=== PATIENT | male | born 1965 | race Caucasian/White ===

== ENCOUNTER 2022-01-28 08:17 | Outpatient (CLI) | payer OTHER, SELFPAY ==
[2022-01-28 14:02] LABS: Cholesterol* 159 mg/dL (90-199); HDL Cholesterol* 32 mg/dL (>=40); LDL Cholesterol Calculated 107 mg/dL (<100); Triglycerides* 102 mg/dL (40-149)
[2022-01-30 16:35] LABS: Glucose* 95 mg/dL (60-115)
== END 2022-01-28 08:18 | disposition home or self-care (01) ==
PROVIDERS: PCP Emergency Medicine; Visit Provider Emergency Medicine
DX: R73.01 Impaired fasting glucose (principal); E78.5 Hyperlipidemia, unspecified
CPT/HCPCS: 80061; 82947

== ENCOUNTER 2022-07-22 10:27 | Outpatient (CLI) | payer OTHER, SELFPAY ==
[2022-07-22 22:12] LABS: Chloride* 102 mmol/L (96-114); Sodium* 138 mmol/L (135-149)
[2022-07-22 22:13] LABS: Potassium* 4.3 mmol/L (3.6-5.1)
[2022-07-22 22:15] LABS: Blood Urea Nitrogen* 13 mg/dL (7-30); Carbon Dioxide* 33 mmol/L (20-32); Creatinine* 0.9 mg/dL (0.5-1.5); Estimated Glomerular Filt Rate 101 ml/min
[2022-07-22 22:16] LABS: Calcium* 9.6 mg/dL (8.4-10.6); Glucose* 93 mg/dL (60-115)
== END 2022-07-22 10:28 | disposition home or self-care (01) ==
PROVIDERS: PCP Emergency Medicine; Visit Provider Family Medicine
DX: Z01.810 Encounter for preprocedural cardiovascular examination (principal)
CPT/HCPCS: 80048

== ENCOUNTER 2022-07-27 10:00 | Outpatient (CLI) | payer OTHER, SELFPAY ==
--- NOTE | 2022-07-27 11:10 | W.ANESCHARGE ---
Anesthesia Charges Start Date/Time Anesthesia Start Date: 07/27/22 Anesthesia Start Time: 10:35 Stop Date/Time Anesthesia Stop Date: 07/27/22 Anesthesia Stop Time: 11:05 Summary Emergency: No
--- NOTE | 2022-07-27 11:11 | W.ANESCHARGE ---
Anesthesia Charges Start Date/Time Anesthesia Start Date: 07/27/22 Anesthesia Start Time: 10:35 Stop Date/Time Anesthesia Stop Date: 07/27/22 Anesthesia Stop Time: 11:05 Summary Emergency: No
== END 2022-07-27 10:01 | disposition home or self-care (01) ==
LOC: OP CLINIC 10:00
PROVIDERS: PCP Emergency Medicine; Visit Provider Surgery
DX: Z12.11 Encounter for screening for malignant neoplasm of colon (principal); Z86.010 Personal history of colon polyps
CPT/HCPCS: 00811; 45378; J2405; J2704

== ENCOUNTER 2022-09-27 14:40 | Emergency (ER) | payer OTHER, SELFPAY ==
[2022-09-27 14:46] VITALS: BP 116/79; PULSE 78; RESP 18; TEMP 36.9; O2SAT 98; BMI 34.3
--- NOTE | 2022-09-27 15:07 | CRLHL7_ITS ---
For Patients: As a result of the Century Cures Act, medical imaging exams and procedure reports are released immediately into your electronic medical record. You may view this report before your referring provider. If you have questions, please contact your health care provider. INDICATION: Chest pain.Pleuritic upper back pain TECHNIQUE: Chest 2 views. COMPARISON: October 2016 FINDINGS: Lungs: Normal lung volume. No consolidation. The tracheobronchial tree and hilar structures are unremarkable. Pleura: No pleural effusion or pneumothorax. Heart and Mediastinum: Normal heart size. The great vessels of the thorax are unremarkable. Bones: No acute displaced osseous process. IMPRESSION: No consolidation. Dictated by Isaiah Cotton MD @ 09/27/2022 4:35:53 PM (Electronically Signed)
--- NOTE | 2022-09-27 15:10 | ED_ITS ---
HPI - Back Pain/Injury General Chief Complaint: Back Injury/Pain Stated Complaint: Possible blood clot, upper back/lung pain Time Seen by Provider: 09/27/22 14:44 History of Present Illness HPI Narrative: 56-year-old man presenting to the emergency department on advice of Urgent Care where he went to be seen for upper back pain primarily pleuritic component. Was traveling in August. [place] was seen in either ER or urgent care they were treated with doxycycline and prednisone for ?bronchitis?. He describes imaging indicating a potentially bilateral pneumonia as well. Says ?0h yeah? he was wheezy at that time noting a history of asthma. It has been sometime though since he has needed his albuterol inhaler having improved with the treatment is indicated above. He has not had any fever curiously he says. While shoveling recent snow did have ?my back go out? and then seemed to get better and then his back went out again when shoveling again with most recent snow prompting a follow-up to Urgent Care. It was impressed upon him that he may have a blood clot in his lungs from recommending further evaluation. is concerned too he says. Pain is in the upper back and pleuritic. Is not coughing. Denies leg pain or swelling. No chest pain really although and notes can have some tightness in his chest with deep breath; sounds like upper chest. Related Data Home Medications Medication Instructions Recorded Confirmed albuterol sulfate 90 mcg/actuation 2 puff inhalation Q6H PRN 01/27/22 07/22/22 aerosol inhaler (Ventolin HFA) omeprazole 20 mg capsule,delayed 20 mg PO QDAY 01/27/22 07/22/22 release sildenafil 100 mg tablet 100 mg PO QDAY PRN 01/27/22 07/22/22 Previous Rx's Medication Instructions Recorded rosuvastatin 20 mg tablet 20 mg PO QDAY #90 tabs 01/28/22 peg 3350-electrolytes 236 240 ml PO Q10M #4,000 mL 07/02/22 gram-22.74 gram-6.74 gram-5.86 gram solution (Golytely) citalopram 40 mg tablet 40 mg PO DAILY #90 tabs 07/08/22 methylphenidate HCl 20 mg tablet 20 mg PO TID #90 tabs 09/02/22 Allergies Allergy/AdvReac Type Severity Reaction Status Date / Time Bee venom Allergy Severe throat Uncoded 07/22/22 10:57 closes Review of Systems Status of ROS: Reports: 6 or more systems reviewed and unremarkable except as noted in History and below [facility] Medical History History of adenomatous polyp of colon History of eczema History of methicillin resistant Staphylococcus aureus infection (2011) Screening for colon cancer Severe acute respiratory syndrome coronavirus 2 (SARS-CoV-2) vaccine administered Surgical History History of colonoscopy with polypectomy (11/29/15) History of inguinal hernia repair Status post cholecystectomy Family History Family/Other Colon cancer, Onset Age: 60 Prostate cancer, Onset Age: 60 Father Family history of early CAD Sister Ovarian cancer Social History Narrative: vapes nicotine containing substance Smoking Status: Never smoker Exam Narrative: Exam Narrative: Seems a little distracted. Cranial nerves 2-12 are intact. On exam discomfort is vaguely reproducible in the upper back musculature. No midline back tenderness no SI joint area tenderness. He does with deep inspiratory efforts report increased discomfort across the upper back maybe a little in his chest as well. No pain to palpation over the anterior chest. Lungs are clear; there is no wheeze. Heart with regular rate and rhythm. Lower extremities are without edema. Negative Homans. Well perfused peripherally with equal radial pulses. No supraclavicular crepitus. Skin is warm and dry no rash apparent. Const: Vital Signs, click to edit/add: Vital Signs - 24 hr 09/27/22 14:46 09/27/22 15:17 Temperature 98.4 F Pulse Rate [Pulse Oximeter] 78 Respiratory Rate 18 Blood Pressure [Le ft Upper Arm] 116/79 Pulse Oximetry 98 98 Oxygen Delivery Me thod Room Air Documenting provider has reviewed patient's vital signs: yes Course Vital Signs Vital signs: Initial Vital Signs Temperature 98.4 F 09/27/22 14:46 Temperature Source Temporal Artery Scan 09/27/22 14:46 Pulse Rate 78 09/27/22 14:46 Respiratory Rate 18 09/27/22 14:46 Blood Pressure 116/79 09/27/22 14:46 Blood Pressure Mean 91 09/27/22 14:46 Pulse Oximetry 98 09/27/22 14:46 Oxygen Delivery Method 09/27/22 14:46 Vital Signs Temperature 98.4 F 09/27/22 14:46 Pulse Rate 78 09/27/22 14:46 Respiratory Rate 18 09/27/22 14:46 Blood Pressure 116/79 09/27/22 14:46 Pulse Oximetry 98 09/27/22 14:46 Oxygen Delivery Method 09/27/22 14:46 Temperature 98.4 F 09/27/22 14:46 Pulse Rate 78 09/27/22 14:46 Respiratory Rate 18 09/27/22 14:46 Blood Pressure 116/79 09/27/22 14:46 Pulse Oximetry 98 09/27/22 15:17 Oxygen Delivery Method 09/27/22 14:46 MDM - Back Pain/Injury MDM Narrative Medical decision making narrative: I suspect musculoskeletal pain/ muscle tension is source here of his discomfort. I think that pulmonary embolus is much less likely as is cardiac etiology. Vascular disruption also in differential. Pneumothorax or pneumomediastinum. He describes recent spreading pneumonia. Labs overall reassuring with normal D-dimer. I did review chest x-ray appears to be without infiltrative process. Spent some time discussing pain management needs. He had mentioned a number of times muscle relaxers though admits that past soma? has not been particularly effective. See patient discharge plan. Lab Data Attestation: I reviewed the patient's lab results. Labs: Lab Results 09/27/22 09/27/22 09/27/22 Range/Units 15:14 15:14 16:23 D-Dimer Quant (PE/DVT) < 0.27 (0.00-0.50) ug/ml Sodium 137 (135-149) mmol/L Potassium 4.2 (3.6-5.1) mmol/L Chloride 103 (96-114) mmol/L Carbon Dioxide 29 (20-32) mmol/L BUN 15 (7-30) mg/dL Creatinine 1.0 (0.5-1.5) mg/dL Estimated Creat Clear 95.44 Estimated GFR 89 ml/min Glucose 92 (60-115) mg/dL Calcium 9.1 (8.4-10.6) mg/dL Total Bilirubin 0.4 (0.1-1.5) mg/dL Direct Bilirubin 0.2 (0.0-0.5) mg/dL AST 30 (12-35) U/L ALT 32 (4-50) U/L Alkaline Phosphatase 71 (40-150) U/L Troponin I < 0.01 L (0.01-0.04) ng/mL C-Reactive Protein 0.8 (0.5-1.0) mg/dL NT-Pro-B Natriuret Pep 53 pg/mL Total Protein 7.4 (6.0-8.3) g/dL Albumin 4.5 (3.3-5.0) g/dL SARS-CoV-2 (PCR) Negative SARS-CoV-2 (Negative) Influenza Type A (PCR) Negative PCR FLU A (Negative) Influenza Type B (PCR) Negative PCR FLU B (Negative) RSV (PCR) Negative PCR RSV (Negative) ECG Data Attestation: I personally reviewed and interpreted this ECG as follows: (Normal sinus rate of 62 no ischemic changes evident.) Discharge Plan Discharge Clinical Impression: Upper back strain Patient Disposition: Home, Self-Care Condition: Stable Instructions: Muscle Strain (ED), Core Strengthening Exercises (ED) Additional Instructions: See handout for stretches of the upper back. Can take ibuprofen or acetaminophen for discomfort. Otherwise consider up to 500 mg naproxen 2 times day. Stay well-hydrated. Return for marked increase in pain, increasing pain with breathing, worsening chest pain, associated lightheadedness. Take prednisone as 60 mg daily for 3 days then 40 mg daily for 3 days then 20 mg daily for 3 days. Prednisone and Flexeril from [facility]. Activity Level: No Restrictions Discharge Diet: Regular Prescriptions: No Action rosuvastatin 20 mg tablet 20 mg PO QDAY Qty: 90 3RF albuterol sulfate [Ventolin HFA] 90 mcg/actuation HFA aerosol inhaler 2 puff inhalation Q6H PRN omeprazole 20 mg capsule,delayed release(DR/EC) 20 mg PO QDAY sildenafil 100 mg tablet 100 mg PO QDAY PRN Rx Instructions: administer 30 minutes to 4 hours before activity peg 3350-electrolytes [Golytely] 236-22.74-6.74 -5.86 gram recon soln 240 ml PO Q10M Qty: 4000 0RF Rx Instructions: until fecal effluent is clear citalopram 40 mg tablet 40 mg PO DAILY Qty: 90 0RF methylphenidate HCl 20 mg tablet 20 mg PO TID Qty: 90 0RF Follow Up/Referrals: Sherry Melendez MD [Primary Care Provider] - Stand Alone Forms: [employer] Info Instructions
[2022-09-27 15:17] VITALS: O2SAT 98
[2022-09-27 15:42] LABS: Albumin* 4.5 g/dL (3.3-5.0); Chloride* 103 mmol/L (96-114)
[2022-09-27 15:43] LABS: Potassium* 4.2 mmol/L (3.6-5.1); Sodium* 137 mmol/L (135-149)
[2022-09-27 15:45] LABS: Aspartate Amino Transferase* 30 U/L (12-35); Bilirubin Direct* 0.2 mg/dL (0.0-0.5); Bilirubin Total* 0.4 mg/dL (0.1-1.5); Carbon Dioxide* 29 mmol/L (20-32); Est. Creatinine Clearance* 95.44; Estimated Glomerular Filt Rate 89 ml/min; Total Protein* 7.4 g/dL (6.0-8.3)
[2022-09-27 15:46] LABS: Alanine Aminotransferase* 32 U/L (4-50); Alkaline Phosphatase* 71 U/L (40-150); Blood Urea Nitrogen* 15 mg/dL (7-30); Calcium* 9.1 mg/dL (8.4-10.6); Glucose* 92 mg/dL (60-115)
[2022-09-27 15:48] LABS: C Reactive Protein* 0.8 mg/dL (0.5-1.0)
[2022-09-27 15:57] LABS: D Dimer Quantitative* < 0.27 ug/ml (0.00-0.50); NT Pro B Type NatriureticPept* 53 pg/mL
[2022-09-27 16:04] LABS: Troponin I* < 0.01 ng/mL (0.01-0.04)
[2022-09-27 17:16] LABS: PCR FLU A Negative PCR FLU A (Negative); PCR FLU B Negative PCR FLU B (Negative); PCR RSV Negative PCR RSV (Negative)
[2022-09-27 17:23] LABS: SARS PCR* Negative SARS-CoV-2 (Negative)
== END 2022-09-27 16:44 | disposition home or self-care (01) ==
PROVIDERS: Emergency Provider Family Medicine; PCP Emergency Medicine
DX: S29.012A Strain of muscle and tendon of back wall of thorax, initial encounter (principal)
CPT/HCPCS: 36415; 71046; 80048; 80076; 83880; 84484; 85379; 86140; 87502; 87634; 87635; 93005; 94761; 99284

== ENCOUNTER 2022-11-03 19:21 | Outpatient (CLI) | payer OTHER, SELFPAY ==
--- OUTSIDE RECORDS SUMMARY | 2022-11-03 19:22 | XMS_ITS | Continuity of Care Document ---
Author Name Unknown Organization [facility] Address [address] [address] [place] [address] Phone Care Team Providers Care Clay Carman Name Role Phone Whitley LÓPEZ, Gabriele Unavailable Unavailable Allergies, Adverse Reactions, Alerts Substance Reaction Status Criticality No Known Allergies Active No Inform ation Medications Medication Instructions Dosage Effective Dates (start - stop) Status Comments methylphenidate LA 20 mg capsule,extended release biphasic 50-50 take 1 capsule by oral route 3 times every day 20 MG - Active duloxetine 30 mg capsule,delayed release take 1 capsule by oral route 2 times every day 30 MG - Active citalopram 40 mg tablet take 1 tablet by oral route every day 40 MG - Active omeprazole 20 mg capsule,delayed release take 1 capsule by ORAL route every day before a meal 20 MG - Active ibuprofen 600 mg tablet take 2 Tablet by ORAL route 3 times every day with food for one week 1200 MG - Active MiralaxBisacodylMagCit Colon Prep Use as directed - No Longer Active Procedures Procedure Date Colonoscopy Flex; W/remov Les- 16 Colonoscopy Flex; W/bx 1/mx Level Iv-surg Path Gross/micro 16 Advance Directives Directive Yes / No Effective Date File Name No Information Encounters Encounter Description Practice Location Reason(s) For Visit Diagnoses Date Provider Providers Copied on Encounter [facility], [address] [address], [place], [id number], tel:[phone] [facility] Colon polypDiverticulosis of colon without diverticulitisHemor rhoids, unspecified hemorrhoid typeFamily history of colonic polypsFamily history of colonic polypsBenign neoplasm of descending colonChange in bowel habitUnspecified hemorrhoidsDvrtclos of lg int w/o perforation or abscess w/o bleeding Whitley Suazo. [address], [id number] , [place]. [phone] Referring Provider: Amina Sheppard, [address] [place] [address], [id number]. tel:[phone] [facility], [address] [address], [place], [place], [id number], tel:[phone] [facility] No Information Damian Schaefer. [address] [facility] [place] [address], [place], [id number] , [place]. [phone] Referring Provider: Amina Sheppard, [address] [place], [address]. tel:[phone] Family History Family Member Type Diagnosis Age At Onset Mother Problem (finding) Alive and well Sister Problem (finding) Alive and well Sister Problem (finding) Crohn's disease Sister Problem (finding) malignant neoplasm of o vary Brother Problem (finding) Alive and well Sister Problem (finding) Thyroid disorder Sister Problem (finding) Colon polyps Sister Problem (finding) Irritable bowel disease Father Problem (finding) Son Problem (finding) Alive and well Payers Payer name Insurance type Covered republican ID Authoriza tion(s) Links to Care CI [id number] Social History Type Description Quantity Date Captured Comments Alcohol Use Details Unknown Caffeine Use Details Unknown Tobacco Use Status No Information Smoking Status Smoker, current status unknown M Sex Male Vital Signs Date / Time: Height Weight BMI Pulse Rate Blood Pressure Temperature Respiratory Rate Body Surface Area Head Circumference Head Circ. Percentile Wt./Sherif. Percentile BMI percentile Pulse Ox Inhaled Ox 8:12 AM 72.00 in 126.980 kg (280.00 lbs) 38.0 0 kg/m eter (2) 65 /min 128/78 mm[Hg] 0.00 F 16 /min 97 % Chief Complaint And Reason For Visit No Information Reason For Referral Reason For Referral No Information Plan Of Treatment Date Type Action Status No Information History Of Present Illness Encounter Date Complaint History Of Prese nt Illness No Information Functional Status Date Functional Assessmen t No Information Instructions Date Instruction Additional Infor mation Colon Polyps Related to Colon polyp Diverticulosis/Diverticulitis Re lated to Colon polyp Hemorrhoids Related to Colon polyp High Fiber Diet Related to Colon polyp Colon Cancer Prevention Related to Colon polyp Assessments Type Assessment Date assessment Colon polyp assessment Diverticulosis of colon without diverticulitis assessment Hemorrhoids, unspecified hemorrh oid type assessment Family history of colonic polyps assessment Family history of colonic polyps Patient Care Teams Name Effective Dates (start - stop) Status Members No Information
--- NOTE | 2022-11-16 12:25 | W.PM.SLEEP ---
Sleep Study Details Details Interpreting Provider: Josefa Date of Sleep Study: 11/03/22 Sleep Study Details: STUDY TYPE:? Home ? BMI:? 34.3 ORDERING PROVIDER:? Nora INDICATION:? Concerns about sleep apnea ? SLEEP SUMMARY:? 494 minutes monitored RESPIRATORY SUMMARY:? AHI 46.7 Low oxygen 84 2.3% of study oxygen less than 90% Snoring% 19.8 PERIODIC LIMB MOVEMENTS OF SLEEP:? Not recorded CARDIAC:? Range 44-96 mean 58.3 IMPRESSION:? Severe obstructive sleep apnea RECOMMENDATION: AutoSet CPAP pressure 4-17
== END 2022-11-03 19:22 | disposition home or self-care (01) ==
LOC: SLEEP 19:21
PROVIDERS: PCP Emergency Medicine; Visit Provider Emergency Medicine
DX: G47.33 Obstructive sleep apnea (adult) (pediatric) (principal)
CPT/HCPCS: 95806

== ENCOUNTER 2023-01-11 10:09 | Outpatient (CLI) | payer OTHER, SELFPAY ==
--- OUTSIDE RECORDS SUMMARY | 2023-01-11 16:26 | XMS_ITS | Continuity of Care Document ---
Author Name Unknown Organization [facility] Address [address] [address] [place] [address] Phone Care Team Providers Care Lap Welder Name Role Phone Whitley LÓPEZ, Gabriele Unavailable [...] Provider Providers Copied on Encounter [facility], [address] [address], [place], [id number], tel:[phone] [facility] Colon polypDiverticulosis of colon without diverticulitisHemor rhoids, unspecified hemorrhoid typeFamily history of colonic polypsFamily history of colonic polypsBenign neoplasm of descending colonChange in bowel habitUnspecified hemorrhoidsDvrtclos of lg int w/o perforation or abscess w/o bleeding Whitley Suazo. [address], [id number] , [place]. [phone] Referring Provider: Amina Sheppard, [address] [place] [address], [address]. tel:[phone] [facility], [address] [address], [place], [place], [id number], tel:[phone] [facility] No Information Damian Schaefer. [address] [facility] [address], [place], [id number] , [place]. [phone] Referring Provider: Amina Sheppard, [address] [place], [address]. tel:[phone] Family History Family Member Type Diagnosis Age [...] well Payers Payer name Insurance type Covered constitution party ID Authoriza tion(s) Links to Care CI [...]
== END 2023-01-11 10:10 | disposition home or self-care (01) ==
LOC: NFLDREF 16:24
PROVIDERS: PCP Emergency Medicine; Referring Provider Emergency Medicine; Visit Provider Emergency Medicine
DX: E78.5 Hyperlipidemia, unspecified (principal)
CPT/HCPCS: 80061

== ENCOUNTER 2023-04-06 15:31 | Outpatient (CLI) | payer OTHER, SELFPAY | END 2023-04-06 15:32 | disposition home or self-care (01) | PROVIDERS: PCP Emergency Medicine; Visit Provider Emergency Medicine | DX: Z00.00 Encounter for general adult medical examination without abnormal findings (principal); K21.9 Gastro-esophageal reflux disease without esophagitis; Z12.5 Encounter for screening for malignant neoplasm of prostate; Z13.1 Encounter for screening for diabetes mellitus | CPT/HCPCS: 82607; 84153 ==

== ENCOUNTER 2024-05-01 08:29 | Outpatient (CLI) | payer OTHER, SELFPAY | END 2024-05-01 08:30 | disposition home or self-care (01) | PROVIDERS: PCP Emergency Medicine; Visit Provider Emergency Medicine | DX: I10 Essential (primary) hypertension (principal); E78.5 Hyperlipidemia, unspecified; Z12.5 Encounter for screening for malignant neoplasm of prostate | CPT/HCPCS: 80048; 80061; G0103 ==

== ENCOUNTER 2025-06-11 08:26 | Outpatient (CLI) | payer OTHER, SELFPAY | END 2025-06-11 08:27 | disposition home or self-care (01) | PROVIDERS: PCP Family Medicine; Visit Provider Family Medicine | DX: E78.5 Hyperlipidemia, unspecified (principal); Z12.5 Encounter for screening for malignant neoplasm of prostate | CPT/HCPCS: 80048; 80061; G0103 ==